=== PATIENT | male | born 2000 | race Caucasian/White ===

== ENCOUNTER 2019-08-21 05:15 | Emergency (ER) | payer OTHER ==
[~2019-08-21] VITALS: Ht 188 cm; Wt 74.9 kg
[2019-08-21] MEDS ORDERED: KETOROLAC 30 MG/1 ML ONE (05:41)
[2019-08-21] MEDS ORDERED: DIAZEPAM 5 MG TABLET ONE (05:41)
[2019-08-21] MEDS ORDERED: KETOROLAC 30 MG/1 ML IM ONE (06:00)
[2019-08-21] MEDS ORDERED: DIAZEPAM 5 MG TABLET PO ONE (06:00)
[2019-08-21 06:04] VITALS: BP 125/85
== END 2019-08-21 06:06 | disposition home or self-care (01) ==
LOC: ED 05:40
DX: G89.29 Other chronic pain (principal); M25.551 Pain in right hip
CPT/HCPCS: 96372; 99283; J1885